=== PATIENT | female | born 1985 | race Caucasian/White ===

== ENCOUNTER 2019-04-24 03:47 | Outpatient (CLI) | payer BC ==
[2019-04-24 06:16] VITALS: BP 95/60; PULSE 88; RESP 18; TEMP 98
--- NOTE | 2019-04-25 15:19 | P.MSEPDOC ---
Presenting Problems - Arrival Data Date of Arrival on Unit: 04/24/19 Time of Arrival on Unit: 03:47 Mode of Transport: Ambulatory - Complaint OB-Reason for Admission/Chief Complaint: Possible Onset of Labor Medical History - Information : 4 Para: 3 Term: 0 : 3 Abortions: Spontaneous or Elective: 0 Number of Living Children: 3 - Gestational Age Gestational Age by MARYLOU (wks/days): 35 Weeks and 6 Days - History Complications: Prior Review of Systems - Review of Systems Constitutional: No problems Breast: No problems ENT: No problems Cardiovascular: No problems Respiratory: No problems Gastrointestinal: No problems Genitourinary: No problems Musculoskeletal: No problems Neurological: No problems Skin: No problems Vital Signs - Temperature Temperature: 98.0 F Temperature Source: Temporal Artery Scan - Pulse Right Brachial Pulse Rate: 88 Pulse Assessment Method: Automatic Cuff - Respirations Respiratory Rate: 18 Oxygen Delivery Method: Room Air O2 Sat by Pulse Oximetry: 99 - Blood Pressure Right Arm Blood Pressure: 95/60 Blood Pressure Mean: 71 Blood Pressure Source: Automatic Cuff Medical Screen Scoring (Pre) - Cervical Exam Dilation: 1-3 cm = 1 Effacement: More than 50% = 2 Membranes: Intact - Uterine Contractions Frequency: > 5 minutes apart = 1 Duration: N/A Intensity: N/A - Maternal Vital Signs Maternal Temperature: N/A Maternal Blood Pressure: N/A Signs of Preeclampsia: N/A Maternal Respirations: N/A - Maternal Trauma Maternal Trauma: N/A - Assessment - Baby A Baseline FHR: 130 Heart Rate - NICHD Category: Category I (Normal) = 0 NST: Reactive - Total Score - Baby A Total Score - Baby A: 4 - Total Score - Baby B Total Score - Baby B: 4 - Total Score - Baby C Total Score - Baby C: 4 - Level of Risk - Baby A Level of Risk - Baby A: Low (0-5) - Level of Risk - Baby B Level of Risk - Baby B: Low (0-5) - Level of Risk - Baby C Level of Risk - Baby C: Low (0-5) Physician Notification (Pre) - Physician Notified Physician Notified Date: 04/24/19 Physician Notified Time: 04:58 Physician/Practitioner Notifed:: Dr. Chávez Spoke With: Dr. Chávez New Order Received: Yes - Notification Comment Comment: Comment: RN spoke with Dr. Chávez regarding patients complaints of contractions every 5. minutes for the past two hours. Reactive NST relayed. Cervical exam remains unchanged. after one hour- 2/60/-2. Vital signs WNL. Dr. Chávez states she would like patient to. wait one more hour and have a cervical re-check. If patient remains unchanged and. contraction pain lessens patient may be discharged home with follow up care. Medical Screen Scoring (Post) - Cervical Exam Dilation: 1-3 cm = 1 - Uterine Contractions Frequency: > 5 minutes apart = 1 Duration: N/A Intensity: N/A - Maternal Vital Signs Maternal Temperature: N/A Maternal Blood Pressure: N/A Signs of Preeclampsia: N/A Maternal Respirations: N/A - Pain Assessment Pain Location and Character: Lower, Abdomen Pain Scale Used: Numeric (1 - 10) Pain Intensity: 3 Pain Description: *Acute, Cramping Pain Radiation Location: none Pain Frequency: Intermittent Pain Duration: 3 Pain Duration Units: Hours Pain Behavior: None Exhibited Pain Aggravating Factors: Contractions Non-Pharmacological Interventions: Position/Reposition, Relaxation Technique - Maternal Trauma Maternal Trauma: N/A - Assessment - Baby A Heart Rate: 145 Heart Rate - NICHD Category: Category I (Normal) = 0 NST: Reactive - Total Score Total Score - Baby A: 2 Total Score - Baby B: 2 Total Score - Baby C: 2 - Post Treatment Level of Risk Post Treatment Level of Risk - Baby A: Low (0-5) Post Treatment Level of Risk - Baby B: Low (0-5) Post Treatment Level of Risk - Baby C: Low (0-5) Physician Notification (Post) - Physician Notified Physician Notified Date: 04/24/19 Physician Notified Time: 04:58 Physician/Practitioner Notified:: Dr. Chávez Spoke With: Dr. Chávez New Order Received: No - Notification Comment Comment: Patients cervical exam remained unchanged after two hours. Contraction pain lessened. Patient comfortable with being discharged with instructions. Disposition - Disposition OB Disposition: Discharge to home Discharge Date: 04/24/19 Discharge Time: 06:10 I agree with the RN Medical Screening Exam: Yes Risk & Benefit of care provided described in d/c instruction: Yes Diagnosis: FALSE LABOR BEFORE 37 COMPLETED WEEKS OF GEST, THIRD TRI
== END 2019-04-24 06:10 | disposition home or self-care (01) ==
LOC: FBPOP 03:47
PROVIDERS: ATTEND Obstetrics & Gynecology Obstetrics
DX: O47.03 False labor before 37 completed weeks of gestation, third trimester (principal); Z3A.35 35 weeks gestation of pregnancy
CPT/HCPCS: 59025; 99213

== ENCOUNTER 2019-05-05 07:22 | Inpatient (IN) | payer BC ==
[2019-05-05] MEDS ORDERED: OXYTOCIN 10 UNIT/ML 1 ML VIAL IM PRN (07:50)
[2019-05-05] MEDS ORDERED: LIDOCAINE 0.5% (PF) 5 MG/ML (50 ML SDV) SQ PRN (07:50)
[2019-05-05] MEDS ORDERED: METHYLERGONOVINE 0.2 MG/ML 1 ML AMP IM PRN (07:50)
[2019-05-05] MEDS ORDERED: TERBUTALINE 1 MG/ML VIAL SQ PRN (07:50)
[2019-05-05] MEDS ORDERED: CARBOPROST TROMETHAMINE 250 MCG/ML 1 ML AMP IM PRN (07:50)
[2019-05-05] MEDS ORDERED: PENICILLIN G POTASSIUM 5,000,000 UNIT in DEXTROSE 5% IN WATER 100 ML IVPB STA ×2 (07:57)
[2019-05-05] MEDS: LACTATED RINGERS 1,000 ML IV SCH ×2 (08:17→10:04)
[2019-05-05 08:28] LABS: Basophils # (A) 0.2 k/uL (0-0.2); Basophils % (A) 2 %; Eosinophils # (A) 0.1 k/uL (0-0.7); Eosinophils % (A) 1 %; HCT 35.9 % (34.0-46.0); HGB 11.8 gm/dL (11.4-16.0); Lymphocytes # (A) 0.9 k/uL (1.0-4.8); Lymphocytes % (A) 7 %; MCH 30.8 pg (25.0-35.0); MCHC 32.9 g/dL (31.0-37.0); MCV 93.8 fL (80.0-100.0); Mean Platelet Volume 7.5; Monocytes # (A) 0.6 k/uL (0-1.0); Monocytes % (A) 5 %; Neutrophils # (A) 9.8 k/uL (1.3-7.7); Neutrophils % (A) 84 %; Platelet Count 254 k/uL (150-450); RBC 3.83 m/uL (3.80-5.40); RDW 12.9 % (11.5-15.5); WBC 11.7 k/uL (3.8-10.6)
[2019-05-05 09:28] VITALS: BMI 23.3
[2019-05-05] MEDS: OXYTOCIN 30 UNITS/500 ML NS 30 UNIT in SALINE 1 500ML.BAG IV SCH ×2 (09:29→11:39)
[2019-05-05] MEDS ORDERED: ROPIVACAINE 100 MG, fentaNYL (PF) 200 MCG in SODIUM CHLORIDE 0.9% 76 ML EPIDURAL ONE (10:36)
[2019-05-05] MEDS ORDERED: PENICILLIN G POTASSIUM 2,500,000 UNIT in DEXTROSE 5% IN WATER 100 ML IVPB SCH ×2 (12:00)
--- NOTE | 2019-05-05 12:16 | P.HPOB ---
History of Present Illness H&P Date: 05/05/19 Chief Complaint: My water broke at 4:00 this morning This is a 34-year-old white female 4 para 3003 EDC 05/23/2019 at 37-3/7 weeks' gestation. Patient presents to the hospital with spontaneous amniorrhexis, clear fluid which occurred at 0400 hrs. She is having mild irregular contractions to follow. Fetus is been active throughout the . She denies vaginal bleeding. Past medical history is significant for prodromes syndrome, and hypothyroidism. Past surgical history significant for lymph node biopsy, negative pathology. Current medications Plaquenil 200 mg 1.5 tabs orally daily, Synthroid 100 MCG's once daily, vitamins daily, Zofran 4 mg oral tablet when necessary nausea and vomiting. ALLERGIES include milk and seasonal ALLERGIES, no known medical ALLERGIES. Family history significant for breast cancer, diabetes, hypothyroidism, heart disease. Social history patient is a middle school pe teacher, she is , she has never been a smoker, she denies alcohol or drug use. history significant for positive group B strep cultures, blood type A+, rubella status nonimmune. HIV testing, gonorrhea and chlamydia cultures, VDRL testing, urine culture all negative. One-hour Glucola 165, three-hour GTT within normal limits. On exam this is a pleasant white female, 5 foot 4 inches, 136 pounds, initial blood pressure 116/72. The general physical exam is within normal limits. Chest is clear in all quiros. Initial vaginal exam revealed cervical dilation of 4 cm, posterior, 60-70% effaced, vertex presentation. Cervix is currently 8 cm dilated, 80% effaced, -1 station, vertex presentation. heart tones in the 140s with accelerations, consistent with reactive NST. Uterine contractions occurring every 2-4 minutes apart. Epidural is in place. Impression: 37-3/7 weeks intrauterine , spontaneous active labor. Positive group B strep cultures, second dose of antibiotics and given. History of strokes and's syndrome. Plan: Continue close maternal and surveillance. Continue oxytocin as needed. Anticipate normal spontaneous vaginal delivery. Review of Systems Constitutional: Reports as per HPI Past Medical History Past Medical History: Thyroid Disorder Additional Past Medical History / Comment(s): gestational diabetes 02/2019, sjrogen's syndrome History of Any Multi-Drug Resistant Organisms: None Reported Additional Past Surgical History / Comment(s): TEETH IMPLANTS Past Anesthesia/Blood Transfusion Reactions: No Reported Reaction Additional Past Anesthesia/Blood Transfusion Reaction / Comment(s): ANESTHESIA FOR DENTAL PROCEDURE, ONLY. Past Psychological History: No Psychological Hx Reported Smoking Status: Never smoker Past Alcohol Use History: None Reported Past Drug Use History: None Reported - Past Family History Mother Family Medical History: Thyroid Disorder Medications and Allergies Home Medications Medication Instructions Recorded Confirmed Type Hydroxychloroquine Sulfate 200 mg PO DAILY 03/11/19 05/05/19 History [Plaquenil] Levothyroxine Sodium [Synthroid] 100 mcg PO DAILY 03/11/19 05/05/19 History Allergies Allergy/AdvReac Type Severity Reaction Status Date / Time No Known Allergies Allergy Verified 04/24/19 03:53 Exam Vital Signs Temp Pulse Resp BP Pulse Ox 05/05/19 07:49 97.2 F L 86 18 116/72 100 05/05/19 07:39 97.2 F L 86 18 116/72 Intake and Output 05/04/19 05/05/19 05/05/19 22:59 06:59 14:59 Other: Weight 61.689 kg See dictation under HPI placed Results Result Diagrams: 05/05/19 08:15 Abnormal Lab Results - Last 24 Hours (Table) 05/05/19 Range/Units 08:15 WBC 11.7 H (3.8-10.6) k/uL Neutrophils # 9.8 H (1.3-7.7) k/uL Lymphocytes # 0.9 L (1.0-4.8) k/uL Assessment and Plan Assessment: 37-3/7 weeks intrauterine , active labor, positive group B strep cultures with second dose of antibiotics infusing. All signs otherwise reassuring. Plan: Continue close maternal and surveillance. Anticipate normal spontaneous vaginal delivery. Time with Patient: Less than 30
--- NOTE | 2019-05-05 12:52 | P.PROBDLV ---
Vaginal Delivery Note - . Vaginal Delivery Note: This is a 34-year-old white female 4 para 3003 EDC 05/23/2019 at 37-3/7 weeks' gestation. Patient presented earlier this morning with spontaneous amniorrhexis which occurred at home, clear fluid. is remarkable for positive group B strep cultures, penicillin G 2 given. In addition, rubella status is noted as nonimmune. Blood type A+. Please see dictated history and physical for details. Oxytocin augmentation was ultimately started. Epidural was placed per her request with good results. She became completely dilated at 1234 hours and began the second stage of labor at that time. With excellent maternal expulsive efforts, the head delivered in the occiput anterior position after prepping of the perineal body. There was no nuchal cord noted. The left or anterior shoulder was delivered easily from underneath the pubic symphysis at which time the oropharynx, nasopharynx, and external nares were all bulb suctioned on the perineal body. Patient was officially delivered of a liveborn male infant at 1239 hours. Umbilical cord was doubly clamped and ligated, he was handed to waiting nurses for evaluation where scores of 8 and 9 at one and 5 minutes respectively were given. The placenta delivered spontaneously, it was inspected and noted to be intact with trivascular cord at 1242 hours. At this time the uterus is massaged. Careful inspection of the cervix, vagina, periurethral, perirectal, and perineal areas revealed no lacerations and no defects. Estimated blood loss 250 mL's. Infant weight 8 lbs. 5 oz., or 3785 g. The patient is requesting circumcision for her infant son. The family is allowed to begin the bonding experience in the LDR.
[2019-05-05] MEDS ORDERED: IBUPROFEN 600 MG TAB PO PRN (12:54)
[2019-05-05] MEDS ORDERED: ACETAMINOPHEN TAB 325 MG TAB PO PRN (12:54)
[2019-05-05] MEDS ORDERED: diphenhydrAMINE 25 MG CAP PO PRN (12:54)
[2019-05-05] MEDS ORDERED: LANOLIN CREAM 5 GM TUBE TOPICAL PRN (12:54)
[2019-05-05] MEDS ORDERED: ZOLPIDEM 5 MG TAB PO PRN (12:54)
[2019-05-05] MEDS ORDERED: diphenhydrAMINE 50 MG CAP PO PRN (12:54)
[2019-05-05] MEDS ORDERED: SIMETHICONE 80 MG CHEWABLE PO PRN (12:54)
[2019-05-05] MEDS ORDERED: BENZOCAINE/MENTHOL SPRAY 1 GM/SPRAY AEROSOL TOPICAL PRN (12:54)
[2019-05-05] MEDS ORDERED: HYDROCORTISONE 2.5% RECTAL CREAM 30 GM TUBE RECTAL PRN (12:54)
[2019-05-05] MEDS ORDERED: WITCH HAZEL 1 EACH MED..PAD TOPICAL PRN (12:54)
[2019-05-05] MEDS ORDERED: MEASLES-MUMPS-RUBELLA VACC/PF 12,500 UNIT/0.5 ML VIAL SQ ONE (12:54)
[2019-05-05] MEDS ORDERED: diphenhydrAMINE 50 MG/ML 1 ML VIAL IVP PRN ×2 (12:54)
[2019-05-05] MEDS ORDERED: OXYTOCIN 20 UNITS/1000 ML NS 1,000 ML IV SCH (13:00)
[2019-05-05] MEDS: SENNOSIDES-DOCUSATE SODIUM 1 EACH TAB PO SCH (19:42)
[2019-05-06] MEDS ORDERED: LEVOTHYROXINE 100 MCG TAB PO SCH (06:30)
[2019-05-06] MEDS: SENNOSIDES-DOCUSATE SODIUM 1 EACH TAB PO SCH (08:42)
[2019-05-06] MEDS ORDERED: HYDROXYCHLOROQUINE SULFATE 200 MG TAB PO SCH ×2 (09:00)
[2019-05-06 09:52] VITALS: BP 107/59; PULSE 76; RESP 20; TEMP 97.9
--- NOTE | 2019-05-06 12:24 | P.DS ---
Providers Date of admission: 05/05/19 07:42 Expected date of discharge: 05/06/19 Attending physician: Donna Shah Primary care physician: Stated None - Discharge Diagnosis(es) (1) Normal spontaneous vaginal delivery Current Visit: Yes Status: Acute (2) Spontaneous onset of labor Current Visit: Yes Status: Acute (3) Spontaneous rupture of membranes Current Visit: Yes Status: Acute (4) GBS (group B Streptococcus carrier), +RV culture, currently Current Visit: Yes Status: Acute (5) Term Current Visit: Yes Status: Acute Hospital Course: This is a 34-year-old 3 now para 3 woman who presented at 37+ weeks gestation with spontaneous rupture of membranes in early labor. Following admission she received group B strep prophylactic antibiotics. She did receive Pitocin augmentation and an epidural anesthetic. She went on to have an uncomplicated delivery of a liveborn male over an intact perineum. Apgars were 8 at 1 minute and 9 at 5 minutes and weight was 8 lbs. 5 oz. Her course was unremarkable. By the morning of day #1 she was ambulating and voiding without difficulty and her vital signs were stable. Her lochia was minimal. She was discharged home on day #1 with routine instructions for care and follow-up. Patient Condition at Discharge: Good Plan - Discharge Summary New Discharge Prescriptions: No Action Hydroxychloroquine Sulfate [Plaquenil] 300 mg PO DAILY Levothyroxine Sodium [Synthroid] 100 mcg PO DAILY Discharge Medication List Hydroxychloroquine Sulfate [Plaquenil] 300 mg PO DAILY 03/11/19 [History] Levothyroxine Sodium [Synthroid] 100 mcg PO DAILY 03/11/19 [History] Follow up Appointment(s)/Referral(s): Donna Shah MD [STAFF PHYSICIAN] - 6 Weeks Activity/Diet/Wound Care/Special Instructions: Follow-up in the office in 6 weeks . Call with any concerning signs or symptoms including heavy vaginal bleeding, severe abdominal pain, fever greater than 101, swelling or redness of the lower extremities, foul vaginal discharge, or signs of depression. Nothing in the vagina for 6 weeks after delivery, specifically no intercourse. Discharge Disposition: HOME SELF-CARE
== END 2019-05-06 15:00 | disposition home or self-care (01) | DRG 807 ==
LOC: FBPOP 07:22 → 4FBP 07:42
PROVIDERS: ADMIT Obstetrics & Gynecology; ATTEND Obstetrics & Gynecology
PROC: 10E0XZZ Delivery of Products of Conception, External Approach (ICD-10-PCS; principal; 2019-05-05)
PROC: 00HU33Z Insertion of Infusion Device into Spinal Canal, Percutaneous Approach (ICD-10-PCS; 2019-05-05)
PROC: 3E0R3BZ Introduction of Anesthetic Agent into Spinal Canal, Percutaneous Approach (ICD-10-PCS; 2019-05-05)
PROC: 3E00X4Z Introduction of Serum, Toxoid and Vaccine into Skin and Mucous Membranes, External Approach (ICD-10-PCS; 2019-05-05)
DX: O99.824 Streptococcus B carrier state complicating childbirth (principal); Z37.0 Single live birth; Z3A.37 37 weeks gestation of pregnancy; O99.284 Endocrine, nutritional and metabolic diseases complicating childbirth; E03.9 Hypothyroidism, unspecified; Z79.890 Hormone replacement therapy; Z79.899 Other long term (current) drug therapy; Z23 Encounter for immunization; Z86.32 Personal history of gestational diabetes; Z86.73 Personal history of transient ischemic attack (TIA), and cerebral infarction without residual deficits; Z91.011 Allergy to milk products; Z91.048 Other nonmedicinal substance allergy status; Z80.3 Family history of malignant neoplasm of breast; Z83.3 Family history of diabetes mellitus; Z82.49 Family history of ischemic heart disease and other diseases of the circulatory system; Z83.49 Family history of other endocrine, nutritional and metabolic diseases
CPT/HCPCS: 59025; 84112; 85025; 86850; 86900; 86901; 90707; 99213

== ENCOUNTER → 2020-02-07 | Outpatient (CLI) | payer BC ==
--- NOTE | 2020-02-07 09:01 | CT ---
EXAMINATION TYPE: CT sinus wo con DATE OF EXAM: 02/07/2020 COMPARISON: NONE HISTORY: Atypical Facial pain and Pressure. Chronic sinusitis per order. CT DLP: 622.3 mGycm. Automated Exposure Control for Dose Reduction was Utilized. TECHNIQUE: CT scan of the sinuses is performed without contrast, axial images are obtained, coronal r eformatted images are also reviewed. FINDINGS: Mild mucosal thickening involving the right maxillary sinus extending towards maxillary ant ra is present. Minimal mucosal thickening in the periphery of the left maxillary sinus. Remainder par anasal sinuses are clear without suspicious opacification or air-fluid levels. The ostiomeatal compl ex is patent bilaterally on the coronal images. There is some right-sided narrowing noted. Nasal sept um is deviated to right of midline. Visualized portion of mastoid air cells show some patchy opacification on the left for reference axia l image 21. The globes are intact bilaterally. Visualized brain parenchyma is unremarkable. IMPRESSION: Mild right greater than left chronic maxillary sinus disease. No acute sinusitis. Possib le mild left-sided acute mastoiditis, correlate clinically.
== END | disposition home or self-care (01) ==
LOC: RADCTMAIN 08:29
PROVIDERS: ATTEND Otolaryngology
DX: J32.0 Chronic maxillary sinusitis (principal); J32.9 Chronic sinusitis, unspecified; G50.1 Atypical facial pain
CPT/HCPCS: 70486